=== PATIENT | female | born 1990 | race Caucasian/White ===

== ENCOUNTER → 2021-11-19 | Outpatient (CLI) | LOC: M SOG 08:07 | PROVIDERS: ATTEND Orthopaedic Surgery Adult Reconstructive Orthopaedic Surgery | DX: M25.561 Pain in right knee (principal) ==

== ENCOUNTER → 2021-12-09 | Outpatient (CLI) | payer BC ==
[~2021-12-09] MED LIST: OMEGA-3 1000MG CAPSULE ONE; PROHANCE 279.3MG/ML 15ML VIAL ONE
== END ==
LOC: M PLAIMG 13:08
PROVIDERS: ATTEND Orthopaedic Surgery Adult Reconstructive Orthopaedic Surgery
DX: D17.24 Benign lipomatous neoplasm of skin and subcutaneous tissue of left leg (principal); M94.262 Chondromalacia, left knee
CPT/HCPCS: 73723; A9576